=== PATIENT | male | born 1945 | race Caucasian/White ===

== ENCOUNTER 2016-03-22 13:23 | Observation (INO) | payer OTHER ==
[2016-03-22] MEDS ORDERED: MECLIZINE HCL 12.5 MG TAB PO ONE (17:26)
[2016-03-22] MEDS ORDERED: ONDANSETRON INJ 4 MG/2 ML VIAL IV ONE (17:26)
--- NOTE | 2016-03-22 17:49 | ED.PDOC ---
History of Present Illness - General Chief Complaint: GI Problem Stated Complaint: vomiting,elevated blood sugar Time Seen by Provider: 03/22/16 15:13 Source: patient, RN notes reviewed, Vital Signs reviewed, family Exam Limitations: no limitations - History of Present Illness Initial Comments: This 71 y/o male has been having dizziness with nausea/vomiting x 24 hours. Family brings him in stating that he is very unsteady on his feet. They have noticed his eyes moving back and forth when he turns his head. Patient states that anytimme he moves his head, he gets dizzy--the room spins. He denies any illness over the past couple of weeks. He saw his PCP last week, and his blood sugar was over 400. He is prescribed metformin, but he is not taking it as directed. Timing/Duration: 24 hours Severity: severe Improving Factors: nothing Worsening Factors: movement, other - movement of head Associated Symptoms: loss of appetite, nausea/vomiting, weakness Allergies/Adverse Reactions: Allergies NO KNOWN ALLERGY Allergy (Verified 03/22/16 13:49) Home Medications: Ambulatory Orders Metformin HCl 1,000 mg PO BID 03/22/16 Review of Systems - Review of Systems Constitutional: States: weakness EENTM: Denies: ear pain, ear discharge, nose pain, nose congestion, throat pain Respiratory: States: no symptoms reported Cardiology: States: no symptoms reported Gastrointestinal/Abdominal: States: nausea, vomiting Genitourinary: States: no symptoms reported Musculoskeletal: States: no symptoms reported Skin: States: no symptoms reported Neurological: States: weakness Endocrine: States: increased urine Hematologic/Lymphatic: States: no symptoms reported All other Systems: Reviewed and Negative Past Medical History (General) - Patient Medical History Hx of COPD: Yes Hx Cardiac Disorders: Yes Hx Diabetes: Yes Surgical History: coronary bypass surgery - Vaccination History Hx Influenza Vaccination: No Hx Pneumococcal Vaccination: Yes - Social History Hx Tobacco Use: Yes - uses vapor cigs Family Medical History - Family History Father Family History: Unknown Living Status: Unknown Physical Exam - Physical Exam General Appearance: Anxious, Comfortable, Obese Eye Exam: bilateral other - nystagmus when moving head Ears, Nose, Throat: hearing grossly normal, normal ENT inspection, normal pharynx Neck: non-tender, normal inspection Respiratory: lungs clear, normal breath sounds, no respiratory distress, no accessory muscle use Cardiovascular/Chest: regular rate, rhythm, no gallop, no murmur, other - trace edema Gastrointestinal/Abdominal: normal bowel sounds, soft, no organomegaly, tenderness - suprapubic Extremity: non-tender, normal inspection, pedal edema - trace Neurologic: pl sql developer II-XII nml as tested, alert, normal mood/affect, oriented x 3 Progress - Results/Orders Results/Orders: 03/22/16 03/22/16 13:49 15:07 Temperature 95.9 F L Pulse Rate [ 79 82 Right Brachial] Respiratory 20 20 Rate Blood Pressure 156/91 127/76 [Right Arm] O2 Sat by Pulse 93 L 95 Oximetry Laboratory Results WBC 12.0 K/mm3 (4.8-10.8) H 03/22/16 14:00 RBC 5.60 M/mm3 (4.70-6.10) 03/22/16 14:00 Hgb 16.4 gm/dL (14.0-18.0) 03/22/16 14:00 Hct 49.8 % (42.0-52.0) 03/22/16 14:00 MCV 88.9 fl (80.0-94.0) 03/22/16 14:00 MCH 29.3 pg (27.0-31.0) 03/22/16 14:00 MCHC 32.9 g/dL (33.0-37.0) L 03/22/16 14:00 RDW 13.5 % (11.5-14.5) 03/22/16 14:00 Plt Count 187 K/mm3 (130-400) 03/22/16 14:00 MPV 9.7 fl (7.40-10.4) 03/22/16 14:00 Absolute Neuts (auto) 9.60 K/uL (1.8-6.8) H 03/22/16 14:00 Absolute Lymphs (auto) 1.90 K/uL (1.0-3.4) 03/22/16 14:00 Absolute Monos (auto) 0.40 K/uL (0.2-0.8) 03/22/16 14:00 Absolute Eos (auto) 0.00 K/uL (0.0-0.4) 03/22/16 14:00 Absolute Basos (auto) 0.10 K/uL (0.0-0.1) 03/22/16 14:00 Neutrophils % 80.1 % (42.0-78.0) H 03/22/16 14:00 Lymphocytes % 15.7 % (20.0-50.0) L 03/22/16 14:00 Monocytes % 3.5 % (2.0-9.0) 03/22/16 14:00 Eosinophils % 0.3 % (1.0-5.0) L 03/22/16 14:00 Basophils % 0.4 % (0.0-2.0) 03/22/16 14:00 Sodium 135 mmol/L (135-145) 03/22/16 14:00 Potassium 4.1 mmol/L (3.6-5.0) 03/22/16 14:00 Chloride 101 mmol/L (101-111) 03/22/16 14:00 Carbon Dioxide 23 mmol/L (21-31) 03/22/16 14:00 Anion Gap 15.1 (12-18) 03/22/16 14:00 BUN 12 mg/dL (7-18) 03/22/16 14:00 Creatinine 0.87 mg/dL (0.6-1.3) 03/22/16 14:00 BUN/Creatinine Ratio 13.8 (10-20) 03/22/16 14:00 POC Glucose 334 mg/dL (70-105) H 03/22/16 13:50 Random Glucose 390 mg/dL (70-105) H 03/22/16 14:00 Serum Osmolality 286.1 mOsm/L (275-295) 03/22/16 14:00 Calcium 9.0 mg/dL (8.4-10.2) 03/22/16 14:00 Total Bilirubin 0.9 mg/dL (0.2-1.0) 03/22/16 14:00 AST 26 IU/L (10-42) 03/22/16 14:00 ALT 26 IU/L (10-60) 03/22/16 14:00 Alkaline Phosphatase 106 IU/L (42-121) 03/22/16 14:00 Serum Total Protein 7.4 gm/dL (6.4-8.2) 03/22/16 14:00 Albumin 3.8 g/dl (3.2-5.5) 03/22/16 14:00 Globulin 3.6 gm/dL (2.3-3.5) H 03/22/16 14:00 Albumin/Globulin Ratio 1.1 (1.1-1.9) 03/22/16 14:00 Urine Color Yellow (Yellow) 03/22/16 16:58 Urine Appearance Clear (Clear) 03/22/16 16:58 Urine pH 7.0 (4.5-7.8) 03/22/16 16:58 Ur Specific [place] 1.015 (1.005-1.030) 03/22/16 16:58 Urine Protein Negative mg/dL 03/22/16 16:58 Urine Glucose (UA) 500 mg/dL (Negative) H 03/22/16 16:58 Urine Ketones 40 mg/dL (NEGATIVE) H 03/22/16 16:58 Urine Blood Trace-intact (Negative) H 03/22/16 16:58 Urine Nitrite Negative 03/22/16 16:58 Urine Bilirubin Negative (NEGATIVE) 03/22/16 16:58 Urine Urobilinogen 0.2 mg/dL (0.2-1.0) 03/22/16 16:58 Ur Leukocyte Esterase Negative (Negative) 03/22/16 16:58 Urine RBC 1-3 /hpf 03/22/16 16:58 Urine WBC 1-3 /hpf 03/22/16 16:58 Ur Epithelial Cells 5-10 /hpf 03/22/16 16:58 Urine Bacteria Rare 03/22/16 16:58 Departure - Departure Clinical Impression: At high risk for falls Benign paroxysmal vertigo Qualifiers: Laterality: unspecified laterality Qualifier Code: (H81.10) Benign paroxysmal vertigo, unspecified ear Diabetes mellitus Qualifiers: Diabetes mellitus type: type 2 Diabetes mellitus complication status: with unspecified complications Qualifier Code: (E11.8) Type 2 diabetes mellitus with unspecified complications Time of Disposition: 18:26 Disposition: Admit Patient Condition: Fair Diet: diabetic diet Home Medications: Ambulatory Orders Metformin HCl 1,000 mg PO BID 03/22/16 Decision To Admit - Decistion To Admit Decision to Admit Reason: Admit from ER Decision to Admit Date: 03/22/16 Decision to Admit Time: 18:20
[2016-03-22] MEDS ORDERED: SODIUM CHLORIDE 0.9% (FLUSH) 10 ML SYG IV PRN (19:07)
[2016-03-22] MEDS ORDERED: GLUCAGON INJ 1 MG VIAL SUBCU PRN (19:15)
[2016-03-22] MEDS ORDERED: DEXTROSE 50% 25 GM/50 ML SYG IV PRN (19:15)
[2016-03-22] MEDS ORDERED: IV SET AND CAP CHANGE INJ INJ SCH (19:30)
[2016-03-22] MEDS ORDERED: MAGNESIUM HYDROXIDE 30 ML UD PO PRN (19:32)
[2016-03-22] MEDS ORDERED: ACETAMINOPHEN 325 MG TAB PO PRN (19:32)
[2016-03-22] MEDS ORDERED: metFORMIN HCL 500 MG TAB ONE (20:20)
[2016-03-22] MEDS ORDERED: ONDANSETRON INJ 4 MG/2 ML VIAL IV PRN (20:56)
[2016-03-22] MEDS ORDERED: PROMETHAZINE HCL INJ 12.5 MG in SODIUM CHLORIDE 0.9% 50ML 50 ML IVPB PRN (20:56)
[2016-03-22] MEDS ORDERED: NON-FORMULARY MEDICATION 1 EA MIS (Metformin Hcl [Metformin Hcl] 1,000 MG) PO SCH (21:00)
[2016-03-22] MEDS ORDERED: SODIUM CHLORIDE 0.9% 100ML 100 ML IVPB ONE (21:02)
[2016-03-22] MEDS ORDERED: PROMETHAZINE HCL INJ 25 MG/ML VIAL ONE (21:02)
[2016-03-22] MEDS: SODIUM CHLORIDE 0.9% 1000ML 1,000 ML IVS PRN (21:08)
[2016-03-22] MEDS: MECLIZINE HCL 12.5 MG TAB PO SCH (21:23)
[2016-03-22] MEDS ORDERED: INSULIN LISPRO 100 UNITS/ML PEN SUBCU ONE (22:00)
[2016-03-23] MEDS ORDERED: OMEPRAZOLE CAP 20 MG CAP PO SCH (06:30)
[2016-03-23] MEDS: SODIUM CHLORIDE 0.9% 1000ML 1,000 ML IVS PRN (07:54)
[2016-03-23] MEDS: INSULIN LISPRO 100 UNITS/ML PEN SUBCU SCH ×2 (08:36→12:33)
[2016-03-23] MEDS: MECLIZINE HCL 12.5 MG TAB PO SCH (08:36)
[2016-03-23 10:37] VITALS: BP 119/64; TEMP 98.2; O2SAT 94
--- NOTE | 2016-03-23 15:24 | SSS ---
DATE OF ADMISSION: 03/22/16 DATE OF DISCHARGE: 03/23/16 DISCHARGE DIAGNOSIS: 1. Acute vertigo with positional aggravation, suggesting acute vestibular neuronitis. No evidence of an ischemic event contributing, but no doubt aggravated by diabetes poorly controlled. 2. Diabetes mellitus, type 2, poorly controlled with poor compliance with the patient not actively taking his oral medicines as prescribed. 3. Leukocytosis, showing improvement as the patient's condition steadily improved. 4. History of coronary artery disease with coronary artery bypass grafting on two vessels in the year 1999. 5. Chronic lumbar pain with history of lumbar spine fusion. HISTORY OF PRESENT ILLNESS: This 71-year-old, white male was admitted to the hospital via the Emergency Room because of severe protracted positional vertigo. He was unable to walk and had to crawl across his room at home where he lives alone. He had associated as well as repeat emesis as a result. No previous history of similar symptoms. He has diabetes mellitus on metformin 1000 mg twice a day per record, but he admits he has not even been taking the medicine recently and has a sugar of almost 400 as a result. He is not on any particular diabetic diet and will require specific instructions and close followup and management. He is willing to be a little more vigorous and consistent in his medication treatment program for his diabetes, etc., which is a necessity especially with his current symptoms as bad as they are. No headache, no focal weakness, but just a severe spinning vertigo even with his eyes shut. Any type of movement of his head was overwhelmingly aggravating his symptoms of vertigo and dizziness with associated nausea. He was placed in the hospital overnight for stabilization, intravenous fluids, reevaluation the next morning in an effort to try to get him to the point where he would be able to safely return home. PAST MEDICAL HISTORY: 1. History of DVT exams and treatment course two to three months ago by Dr. Vicente in [place]. 2. History of diabetes mellitus, poorly controlled. PAST SURGICAL HISTORY: 1. Coronary artery bypass grafting, two vessels, in 1999. 2. Lumbar spine fusion with chronic pain. 3. Right total knee replacement. CURRENT MEDICATIONS: 1. Metformin 1000 mg b.i.d., which he admits to not taking on a regular basis at all. ALLERGIES: NONE KNOWN. FAMILY HISTORY: Generally negative. SOCIAL HISTORY: The patient has worked and is retired from [employer]. He stopped smoking three years ago, but has gotten pretty heavily into the vapor route of nicotine administration and encouraged to stop completely. REVIEW OF SYSTEMS: GENERAL: Weight unchanged. No fever or chills. HEENT: Unremarkable. LUNGS: Occasional shortness of breath upon exertion, occasional cough. CARDIOVASCULAR: No significant palpitations or recent chest pain. ABDOMEN: Nausea, vomiting with his current dizziness. EXTREMITIES: Trace edema at times. NEUROLOGIC: Significant vertigo at this time aggravated by certain movements of the head, showing some improvement before discharge. PHYSICAL EXAMINATION: VITAL SIGNS: Afebrile. Pulse 70. Blood pressure 117/75. Saturation 93% on room air. Weight 98.9 kg. GENERAL: The patient is awake and alert. He was acutely ill on admission, but was feeling much improved at the time of discharge on the morning of discharge. He was able to carry on a good conversation. He was fully oriented and communicative with no focal weaknesses. HEENT: Unremarkable. He did have a slight lateral nystagmus on admission, but was gone on the morning of discharge. NECK: Supple. CHEST: Lungs generally clear to auscultation with decreased breath sounds noted bilaterally. CARDIOVASCULAR: Regular without any significant gallop, fairly slow rate. ABDOMEN: Soft with good bowel tones. No organomegaly, masses, or tenderness noted. EXTREMITIES: Fairly well formed with good range of motion, trace edema. NEUROLOGIC: No focal neurologic deficits noted. Acute vertigo with positional changes of the head has significantly improved with the patient demonstrating this by turning his head from side to side with no aggravation of the symptoms on the morning of discharge, which he could not do at the time of admission the night before. LABORATORY: White count 12,000, down to 10,400 with 62% neutrophils. Hemoglobin 15.2. Chemistries show potassium 3.8, BUN 14, creatinine 0.94, glucose has dropped from 390 down to fasting of 192. Hemoglobin A1c elevated at 10.9. Albumin 3.3, TSH 0.59. Urinalysis shows trace hematuria, ketones, and glycosuria present. No cultures obtained. HOSPITAL COURSE: The patient was feeling much improved after a night of rest with some fluid hydration and some sliding scale insulin intervention. Meclizine was started on a t.i.d. basis which will be continued on an as needed basis when he goes home. He was much improved and ready for outpatient therapy and encouraged to have close followup. PLAN: Discharge home to see Dr. Vicente this next week. Adhere closely to the diabetic diet. Monitor glucoses twice daily, write results down for Dr. Vicente ' review. Adjust diabetic medications to control the glucose levels with Dr. Vicente' clinic input. Walk daily. Stop all vapor inhalation. Use a pill organizer to help him in medication usage to prevent missed dosages. See an ENT clinic with Dr. Vicente' direction if the vertigo continues. Consider head MRI if not improving. Return if not improving. See home medications. Add baby aspirin daily. Try meclizine 25 mg t.i.d. p.r.n. dizziness and Zofran 4 mg q.6h. p.r.n. nausea, #15 given. Close followup necessary. #[id number] [facility]
[2016-03-23] MEDS ORDERED: metFORMIN HCL 500 MG TAB PO SCH (17:00)
== END 2016-03-23 13:15 | disposition home or self-care (01) ==
LOC: ER 13:23 → MS 19:44
PROVIDERS: ADMIT Emergency Medicine; ATTEND Emergency Medicine
DX: H81.10 Benign paroxysmal vertigo, unspecified ear (principal); E11.9 Type 2 diabetes mellitus without complications; D72.829 Elevated white blood cell count, unspecified; R11.2 Nausea with vomiting, unspecified; I25.10 Atherosclerotic heart disease of native coronary artery without angina pectoris; G89.29 Other chronic pain; M54.5 Low back pain; F17.290 Nicotine dependence, other tobacco product, uncomplicated; Z91.14 Patient's other noncompliance with medication regimen; Z79.84 Long term (current) use of oral hypoglycemic drugs; Z95.1 Presence of aortocoronary bypass graft; Z98.1 Arthrodesis status; Z60.2 Problems related to living alone; Z86.718 Personal history of other venous thrombosis and embolism; Z96.651 Presence of right artificial knee joint
CPT/HCPCS: 36415 ×2; 36416 ×6; 80053 ×2; 81001; 82948 ×6; 83036; 84443; 85025 ×2; 94760 ×2; 96365; 96372 ×2; 96375; 96376; 99284; G0378; J1815; J2405 ×2; J2550; J7030 ×2; J7050

== ENCOUNTER 2017-01-07 17:29 | Emergency (ER) | payer OTHER ==
--- NOTE | 2017-01-07 17:53 | ED.PDOC ---
History of Present Illness - General Chief Complaint: Trauma Stated Complaint: s/p fall Time Seen by Provider: 01/07/17 17:45 Source: patient Exam Limitations: no limitations - History of Present Illness Initial Comments: Elie Mast 71 y/o male stated he tripped on a birdbath at home fell on his right side of his body happened at home last night.Denies head neck injury but daughter stated no acting right today.Noticed that unable to get up form commode today.Has pain right knee,hip right ribs. Occurred: yesterday Severity: moderate Injuries/Pain Location: no injury - no signs of external injury , other - see hpi Loss of Consciousness: no loss of consciousness Improving Factors: nothing Worsening Factors: movement Associated Symptoms (Fall): other - see hpi Allergies/Adverse Reactions: Allergies NO KNOWN ALLERGY Allergy (Verified 03/22/16 13:49) Home Medications: Ambulatory Orders Metformin HCl 1,000 mg PO BID 03/22/16 Aspirin [Aspirin Adult Low Dose] 81 mg PO QAM #100 tab 03/23/16 Meclizine HCl 25 mg PO TID PRN #30 tab 03/23/16 Ondansetron Tab [Zofran Tab] 4 mg PO Q6H PRN #15 tab 03/23/16 Review of Systems - Review of Systems Constitutional: States: no symptoms reported EENTM: States: no symptoms reported Respiratory: States: see HPI Cardiology: States: no symptoms reported Gastrointestinal/Abdominal: States: no symptoms reported Genitourinary: States: no symptoms reported Musculoskeletal: States: see HPI Skin: States: no symptoms reported Neurological: States: see HPI Past Medical History (General) - Patient Medical History Hx Seizures: No Hx Stroke: No Hx Asthma: No Hx of COPD: No Hx Cardiac Disorders: Yes Hx Congestive Heart Failure: No Hx Pacemaker: No Hx Hypertension: Yes Hx Diabetes: Yes Hx MRSA: No Surgical History: coronary bypass surgery, other - valve replacement,lumbar spine,knee - Vaccination History Hx Influenza Vaccination: No Hx Pneumococcal Vaccination: No - Social History Hx Tobacco Use: Yes - Vapes currently Hx Alcohol Use: No Hx Substance Use: No Hx Physical Abuse: No Hx Emotional Abuse: No - Activities of Daily Living Patient Lives Alone: Yes Grooming Ability: Independent Eating (Feeding) Ability: Independent Toileting Ability: Independent Physical Exam - Physical Exam General Appearance: Alert, Comfortable, No apparent distress Head Injury: no evidence of injury Eye Exam: bilateral normal ENT Exam: hearing grossly normal, no evidence of ENT injury, no dental injury Peripheral Pulses: radial,right: 2+, radial,left: 2+ Cardiovascular/Respiratory: regular rate, rhythm, no M/R/G, normal peripheral pulses, normal breath sounds, no respiratory distress, other - lower rib cage tenderness right Gastrointestinal/Abdominal: non tender, soft Back Exam: no vertebral tenderness Extremity Exam: pelvis stable, bony-point tenderness - pelvis/right hip, pain with movement - right knee Neurologic: alert, oriented x 3 Progress - Progress Progress: 01/07/17 18:13 Vital Signs - 8 hr 01/07/17 17:43 Temperature 97.1 F L Pulse Rate [ 84 Left Brachial] Respiratory 20 Rate Blood Pressure 130/90 [Left Arm] O2 Sat by Pulse 94 L Oximetry - Results/Orders Results/Orders: Laboratory Tests 01/07/17 18:14 POC Glucose 187 H - EKG/XRAY/CT XRAY: pelvis - degenarative changes,no fracture hip/pelvis CT Ordered: Yes - head no acute intracranial abnormality Departure - Departure Clinical Impression: Contusion of chest wall with intact skin, Knee pain, right anterior Fall Qualifiers: Encounter type: initial encounter Qualified Code(s): W19.XXXA - Unspecified fall, initial encounter Closed rib fracture Qualifiers: Encounter type: initial encounter Rib fracture type: single rib Laterality: right Qualified Code(s): S22.31XA - Fracture of one rib, right side, initial encounter for closed fracture Pain in joint involving pelvic region and thigh Qualifiers: Laterality: right Qualified Code(s): M25.551 - Pain in right hip Time of Disposition: 19:24 Disposition: Discharge to Home or Self Care Condition: Fair Departure Forms: ED Discharge - Pt. Copy, Patient Portal Self Enrollment Instructions: Rib Fracture, DI for Rib Fracture Referrals: DENNY CRUZ [Primary Care Provider] - 1-2 Weeks Home Medications: Ambulatory Orders Metformin HCl 1,000 mg PO BID 03/22/16 Aspirin [Aspirin Adult Low Dose] 81 mg PO QAM #100 tab 03/23/16 Meclizine HCl 25 mg PO TID PRN #30 tab 03/23/16 Ondansetron Tab [Zofran Tab] 4 mg PO Q6H PRN #15 tab 03/23/16 Additional Instructions: May take Tylenol 500 mg one tablet 3 x a day as needed for pain;Follow up with primary md in one week call for appointment as needed
--- NOTE | 2017-01-07 18:39 | CT ---
PROCEDURE: Head CLINICAL HISTORY: 71 years Male fall COMPARISON: None. TECHNIQUE: Contiguous axial CT images obtained through the brain without IV contrast. This exam was performed according to our department optimization program which includes automated exposure control, adjustment of the mA and/or kv according to patient size and/or use of iterative reconstruction technique. FINDINGS: The ventricles and sulci are prominent consistent with atrophic changes. Microvascular ischemic changes. No mass lesions. No acute hemorrhage. Atherosclerotic calcifications. Small mucous retention cyst in the right maxillary sinus and within a right posterior ethmoid air cell. No depressed calvarial fractures. IMPRESSION: No acute intracranial abnormality is identified. Electronically signed by: Erik Gillespie MD 01/07/2017 6:38 PM CDT
--- NOTE | 2017-01-07 18:55 | RAD ---
PROCEDURE: Pelvis,2 or More Views Clinical History: fall Indication: Same as above Comparison: None . Technique: 2.0 frontal views of the pelvis Findings: There is no evidence of acute fractures or dislocations involving the bones of the pelvis including the bilateral hip joints, the visualized proximal femora and the sacrum. There is evidence of prior surgery in the visualized lower lumbar spine Impression: Negative for acute bony trauma involving the bony pelvis Place of interpretation: [id number]. Electronically signed by: Adam Cooper MD 01/07/2017 6:54 PM CDT Workstation: [email or web address]
--- NOTE | 2017-01-07 18:59 | RAD ---
EXAM DESCRIPTION: Ribs,Right 3 Views CLINICAL HISTORY: fall COMPARISON: None. FINDINGS: Frontal view of the chest and views of the right ribs were submitted. Cardiac silhouette is within normal limits. There is no focal parenchymal infiltrate. No pleural effusion. Multiple median sternotomy wires several of which appear fractured. No pneumothorax. Question nondisplaced fracture of the anterolateral right ninth rib. Multilevel degenerative change in the spine.. IMPRESSION: Question nondisplaced fracture of the anterolateral right ninth rib Degenerative changes in the spine Electronically signed by: Vilma Gillespie 01/07/2017 6:58 PM CDT
--- NOTE | 2017-01-07 19:06 | RAD ---
PROCEDURE: Knee,Left 2 or More Views Clinical History: fall Indication: Same as above. Comparison: None . Technique: 2.0 Views of the left knee were done. Findings: There is no evidence of acute fractures or dislocations involving the bones of the left knee joint. There is no evidence of any significant suprapatellar joint effusion. Degenerative reduction in the joint space in the patellofemoral and the medial femorotibial joint compartments is noted. Marginal osteophyte formation in a tricompartmental distribution is noted. There is chondrocalcinosis of the medial meniscus The bone mineralization is normal for patient's age and sex. The soft tissues are radiographically unremarkable. There is no visualization of any radiopaque foreign bodies in the evaluated soft tissues. Impression: Degenerative changes in the left knee, without any acute bony trauma Place of interpretation: [id number]. Electronically signed by: Adam Cooper MD 01/07/2017 7:05 PM CDT Workstation: [email or web address]
--- NOTE | 2017-01-07 19:14 | RAD ---
PROCEDURE: XR CHEST 1 VIEW HISTORY: fall COMPARISON: X-ray of the right-sided ribs done on the same day TECHNIQUE: Single projection of the chest was done. FINDINGS: Note is made of median sternotomy . There are no discrete airspace infiltrates, pneumothoraces or pleural effusions. The pulmonary vascularity is normal. The cardiomediastinal silhouette is suggestive of mild cardiomegaly. IMPRESSION: There is no acute pleural-parenchymal process seen in the imaged lung chandra. Mild cardiomegaly Electronically signed by: Adam Cooper MD 01/07/2017 7:13 PM CDT Workstation: [id number]
[2017-01-07 19:36] VITALS: BP 158/88; TEMP 97.9; O2SAT 92
== END 2017-01-07 19:36 | disposition home or self-care (01) ==
LOC: ER 17:29
DX: S22.31XA Fracture of one rib, right side, initial encounter for closed fracture (principal); S20.219A Contusion of unspecified front wall of thorax, initial encounter; Z79.899 Other long term (current) drug therapy; Z79.82 Long term (current) use of aspirin; Z95.2 Presence of prosthetic heart valve; F17.210 Nicotine dependence, cigarettes, uncomplicated; Z95.1 Presence of aortocoronary bypass graft; W01.0XXA Fall on same level from slipping, tripping and stumbling without subsequent striking against object, initial encounter; Y92.009 Unspecified place in unspecified non-institutional (private) residence as the place of occurrence of the external cause

== ENCOUNTER 2017-05-30 15:21 | Emergency (ER) | payer OTHER ==
[2017-05-30] MEDS ORDERED: ENOXAPARIN SODIUM 100 MG/ML SYG SUBCU ONE (18:20)
--- NOTE | 2017-05-30 18:36 | ED.PDOC ---
History of Present Illness - General Chief Complaint: General Stated Complaint: Circulatory compromise in RLE Time Seen by Provider: 05/30/17 18:11 Source: patient, family Exam Limitations: no limitations - History of Present Illness Initial Comments: Patient presents with increasing right foot pain for 4-5 days. It started gradually and got bad enough to where he could not stand today and had to use a wheelchair. The pain is constant and aching with no radiation, worse in the toes, worse with movement of the toes and better with rest. No previous episodes on the right side but has a history of "blood clots" in the LLE. He is s/p CABG, TAA with repair, and has NIDDM. No chest pain nor palpitations. No other complaints. Timing/Duration: other - 4 days Severity: moderate Improving Factors: rest Worsening Factors: movement Associated Symptoms: denies symptoms Allergies/Adverse Reactions: Allergies NO KNOWN ALLERGY Allergy (Verified 03/22/16 13:49) Home Medications: Ambulatory Orders Metformin HCl 1,000 mg PO BID 03/22/16 Aspirin [Aspirin Adult Low Dose] 81 mg PO QAM #100 tab 03/23/16 Meclizine HCl 25 mg PO TID PRN #30 tab 03/23/16 Ondansetron Tab [Zofran Tab] 4 mg PO Q6H PRN #15 tab 03/23/16 Review of Systems - Review of Systems Constitutional: States: no symptoms reported EENTM: States: no symptoms reported Respiratory: States: no symptoms reported Cardiology: States: no symptoms reported Gastrointestinal/Abdominal: States: no symptoms reported Genitourinary: States: no symptoms reported Musculoskeletal: States: see HPI Skin: States: change in color - right toes have become purple Past Medical History (General) - Patient Medical History Hx Seizures: No Hx Stroke: No Hx Asthma: No Hx of COPD: No Hx Cardiac Disorders: Yes Hx Congestive Heart Failure: No Hx Pacemaker: No Hx Hypertension: Yes Hx Diabetes: Yes Hx MRSA: No - Vaccination History Hx Influenza Vaccination: No Hx Pneumococcal Vaccination: No - Social History Hx Tobacco Use: Yes - Vapes currently Hx Alcohol Use: No Hx Substance Use: No Hx Physical Abuse: No Hx Emotional Abuse: No Family Medical History - Family History Father Family History: Unknown Living Status: Unknown Mother Living Status: Cause of : old age Hx Family Asthma: No Hx Family Congestive Heart Failure: No Hx Family Hypertension: No Hx Family Stroke: No Hx Cardiac Disease: No Hx Family Diabetes: Yes Hx Family Cancer: No Physical Exam - Physical Exam General Appearance: Alert Eye Exam: bilateral normal Ears, Nose, Throat: normal ENT inspection Neck: non-tender, full range of motion, supple Respiratory: chest non-tender, lungs clear, normal breath sounds Cardiovascular/Chest: regular rate, rhythm Peripheral Pulses: radial,right: 2+, radial,left: 2+, femoral,right: 2+, femoral ,left: 2+, popliteal,right: 2+, popliteal,left: 2+, dorsalis pedis,right: 1+, dorsalis pedis,left: 1+, posterior tibialis,right: 1+, posterior tibialis,left: 1+ Gastrointestinal/Abdominal: normal bowel sounds, non tender, soft Back Exam: no CVA tenderness Extremity: normal range of motion, other - TTP over right toes, especially at proximal phalanges, there is discoloration that is purplish, he has full sensation on all toes and entire right foot as well as full AROM and PROM but there is pain with flexion/extesion of the toes 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, alert, normal mood/affect, oriented x 3 Skin Exam: other - see extremity exam Lymphatic: no adenopathy Progress - Progress Progress: 05/30/17 18:39 Laboratory Tests 05/30/17 05/30/17 05/30/17 16:30 16:30 16:30 WBC 11.1 H RBC 4.88 Hgb 14.3 Hct 43.3 MCV 88.8 MCH 29.4 MCHC 33.1 RDW 14.5 Plt Count 188 MPV 8.4 Absolute Neuts (auto) 8.80 H Absolute Lymphs (auto) 1.70 Absolute Monos (auto) 0.60 Absolute Eos (auto) 0.00 Absolute Basos (auto) 0.10 Neutrophils % 79.0 H Lymphocytes % 15.1 L Monocytes % 5.0 Eosinophils % 0.1 L Basophils % 0.8 PT 12.6 H INR 1.120 PTT (SP) 27.9 D-Dimer, Quantitative 303 H* Sodium 135 Potassium 3.8 Chloride 102 Carbon Dioxide 24 Anion Gap 12.8 BUN 19 H Creatinine 1.07 BUN/Creatinine Ratio 17.8 POC Glucose Random Glucose 219 H Serum Osmolality 279.1 Calcium 9.2 Total Bilirubin 1.1 H AST 27 ALT 16 Alkaline Phosphatase 90 Serum Total Protein 6.9 Albumin 3.4 Globulin 3.5 Albumin/Globulin Ratio 1.0 L 05/30/17 16:30 WBC RBC Hgb Hct MCV MCH MCHC RDW Plt Count MPV Absolute Neuts (auto) Absolute Lymphs (auto) Absolute Monos (auto) Absolute Eos (auto) Absolute Basos (auto) Neutrophils % Lymphocytes % Monocytes % Eosinophils % Basophils % PT INR PTT (SP) D-Dimer, Quantitative Sodium Potassium Chloride Carbon Dioxide Anion Gap BUN Creatinine BUN/Creatinine Ratio POC Glucose 184 H Random Glucose Serum Osmolality Calcium Total Bilirubin AST ALT Alkaline Phosphatase Serum Total Protein Albumin Globulin Albumin/Globulin Ratio No ultrasound available today. Patient transferred to [facility] for radiology/ultrasound of possible PVD. D-dimer mildly elevated but no significant swelling of the RLE or right calve pain/venous cords. Departure - Departure Clinical Impression: Pain in right foot Disposition: Transfer to Hospital Condition: Good Departure Forms: ED Discharge - Pt. Copy, Patient Portal Self Enrollment Diet: other - as per hospitalist Activity: as per physical therapy Referrals: DENNY CRUZ [Primary Care Provider] - 1-2 Weeks Home Medications: Ambulatory Orders Metformin HCl 1,000 mg PO BID 03/22/16 Aspirin [Aspirin Adult Low Dose] 81 mg PO QAM #100 tab 03/23/16 Meclizine HCl 25 mg PO TID PRN #30 tab 03/23/16 Ondansetron Tab [Zofran Tab] 4 mg PO Q6H PRN #15 tab 03/23/16
[2017-05-30 18:44] VITALS: TEMP 97
[2017-05-30 19:00] VITALS: BP 129/61; O2SAT 95
== END 2017-05-30 18:50 | disposition short-term general hospital (02) ==
LOC: ER 15:21
DX: M79.671 Pain in right foot (principal); I10 Essential (primary) hypertension; E11.9 Type 2 diabetes mellitus without complications; F17.210 Nicotine dependence, cigarettes, uncomplicated; Z86.718 Personal history of other venous thrombosis and embolism; Z95.1 Presence of aortocoronary bypass graft; Z79.82 Long term (current) use of aspirin

== ENCOUNTER → 2018-02-18 | Outpatient (CLI) | payer OTHER | LOC: LAB.O 08:41 | PROVIDERS: ATTEND Family Medicine | DX: R41.3 Other amnesia (principal); I10 Essential (primary) hypertension; E11.9 Type 2 diabetes mellitus without complications ==

== ENCOUNTER → 2018-02-22 | Outpatient (CLI) | payer OTHER ==
--- NOTE | 2018-02-22 17:30 | CT ---
EXAM DESCRIPTION: Head: Computed Tomography. CLINICAL HISTORY: MEMORY LOSS COMPARISON: MRI brain 03/24/2016. No report available. TECHNIQUE: Non-helical axial scans through the skull and brain, at 2 x 20 mm intervals, non-contrast. Coronal and sagittal 2.0 mm reconstructions. Total Exam DLP: 859.97 mGy-cm. This exam was performed according to our departmental dose-optimization program which includes automated exposure control, adjustment of the mA and/or kV according to patient size and/or use of iterative reconstruction technique; to reduce radiation dose to as low as reasonably achievable (ALARA). FINDINGS: No hemorrhage, no mass-effect, and no midline shift. Bilateral periventricular low-density is symmetric and moderate in amount. No abnormal radiodense material in the brain parenchyma. Vascular calcifications anterior circulation; physiologic calcifications in the pineal gland and choroid plexus. No effacement or displacement of the ventricles, CSF spaces, or subdural spaces. No extra axial fluid collection or hemorrhage. No gross abnormalities of the bony calvarium. Included paranasal sinuses and mastoid air cells are well - aerated. IMPRESSION: 1. No hemorrhage, no mass effect, no midline shift. Bilateral periventricular low-density most likely related to cerebral microvascular disease and changes related to aging. No extra-axial hemorrhage or fluid collection. 2. MRI scan with and without gadolinium IV contrast, and with diffusion imaging, is more sensitive for detecting chronic or skilled nursing age-related or vascular processes in the elderly population. Electronically signed by: Nader Ch MD 02/22/2018 5:29 PM [employer]
== END ==
LOC: CT 13:17
PROVIDERS: ATTEND Family Medicine
DX: R41.3 Other amnesia (principal); R41.0 Disorientation, unspecified; I10 Essential (primary) hypertension; E11.9 Type 2 diabetes mellitus without complications

== ENCOUNTER → 2018-04-06 | Outpatient (CLI) | payer OTHER | LOC: LAB.O 13:58 | PROVIDERS: ATTEND Urology | DX: R31.0 Gross hematuria (principal) ==

== ENCOUNTER → 2018-05-06 | Outpatient (CLI) | payer OTHER | LOC: GRHH 15:24 | PROVIDERS: ATTEND Family Medicine | DX: E55.9 Vitamin D deficiency, unspecified (principal); E53.8 Deficiency of other specified B group vitamins; I10 Essential (primary) hypertension; E11.9 Type 2 diabetes mellitus without complications ==

== ENCOUNTER 2018-06-26 10:06 | Emergency (ER) | payer OTHER ==
[2018-06-26] MEDS: ONDANSETRON ODT 8 MG TAB SL ONE (10:50)
[2018-06-26] MEDS ORDERED: MAGNESIUM SULFATE PREMIX 4GM 50 ML IVPB ONE (11:29)
[2018-06-26] MEDS: MAGNESIUM SULFATE PREMIX 4GM 4 GM in PREMIX BAG 1 BAG IVPB ONE (11:34)
[2018-06-26] MEDS: SODIUM CHLORIDE 0.9% 1000ML 1,000 ML IVS ONE (12:17)
[2018-06-26] MEDS: MECLIZINE HCL 12.5 MG TAB PO ONE (12:18)
[2018-06-26 14:17] VITALS: TEMP 97.2
--- NOTE | 2018-06-26 14:40 | ED.PDOC ---
History of Present Illness - General Chief Complaint: GI Problem Stated Complaint: dizziness,N/V Time Seen by Provider: 06/26/18 10:08 Source: patient Exam Limitations: no limitations - History of Present Illness Initial Comments: the patient is a 73-year-old male presenting to the emergency room after the abrupt onset of dizziness this morning that certainly seems to fit the description of vertigo. He is no longer having vertigo. While he did have a he did throw up a couple of times. He is a little bit dizzy still. No altered mental status currently. He was having a little bit of confusion while he was throwing up according to his daughter. No fevers. He has been having some mild dizziness and unsteadiness on his feet over the last couple of days. No vision taste or smell changes. No focal neurological deficits. The patient does have some mild dementia issues. He is pleasant and cooperative. Timing/Duration: unsure Severity: moderate Improving Factors: nothing Worsening Factors: nothing Associated Symptoms: denies symptoms Allergies/Adverse Reactions: Allergies NO KNOWN ALLERGY Allergy (Verified 03/22/16 13:49) Home Medications: Ambulatory Orders Metformin HCl 850 mg PO BID 03/22/16 Aspirin [Aspirin Adult Low Dose] 81 mg PO DAILY 06/26/18 Atorvastatin Calcium [Lipitor] 40 mg PO QPM 06/26/18 Cholecalciferol [Vitamin D-3] 5,000 unit PO DAILY 06/26/18 Clopidogrel Bisulfate [Plavix] 75 mg PO QD 06/26/18 Isosorbide Mononitrate [Isosorbide Mononitrate ER] 30 mg PO DAILY 06/26/18 Magnesium Oxide 400 mg PO DAILY #30 cap 06/26/18 Meclizine HCl [Meclizine 25] 25 mg PO Q6HR PRN #10 tab 06/26/18 Metoprolol Succinate [Toprol Xl] 25 mg PO DAILY 06/26/18 Multiple Vitamins W/ Minerals [Macular Health Formula] 1 cap PO QPM 06/26/18 Ondansetron [Ondansetron Odt] 4 mg PO Q8HR PRN #5 tab 06/26/18 Pantoprazole Tablet [Protonix] 40 mg PO DAILY 06/26/18 Tamsulosin HCl [Flomax] 0.4 mg PO DAILY 06/26/18 Review of Systems - Review of Systems Constitutional: States: malaise EENTM: States: no symptoms reported Respiratory: States: no symptoms reported Cardiology: States: no symptoms reported Gastrointestinal/Abdominal: States: no symptoms reported Genitourinary: States: no symptoms reported Musculoskeletal: States: no symptoms reported Skin: States: no symptoms reported Neurological: States: see HPI Endocrine: States: no symptoms reported All other Systems: No Change from Baseline Past Medical History (General) - Patient Medical History Hx Seizures: No Hx Stroke: No Hx Asthma: No Hx of COPD: No Hx Cardiac Disorders: Yes Hx Congestive Heart Failure: No Hx Pacemaker: No Hx Hypertension: Yes Hx Diabetes: Yes Hx Gastroesophageal Reflux: Yes Hx Cancer: No Hx Hepatitis C: No Hx MRSA: No - Vaccination History Hx Tetanus, Diphtheria Vaccination: No Hx Influenza Vaccination: No Hx Pneumococcal Vaccination: No - Social History Hx Tobacco Use: Yes - Vapes currently Hx Chewing Tobacco Use: No Hx Alcohol Use: No Hx Substance Use: No Hx Substance Use Treatment: No Hx Depression: No Hx Physical Abuse: No Hx Emotional Abuse: No Hx Suspected Abuse: No Family Medical History - Family History Father Family History: Unknown Living Status: Unknown Mother Living Status: Cause of : old age Hx Family Asthma: No Hx Family Congestive Heart Failure: No Hx Family Hypertension: No Hx Family Stroke: No Hx Cardiac Disease: No Hx Family Diabetes: Yes Hx Family Cancer: No Physical Exam - Physical Exam General Appearance: Alert, Ill Appearing Eye Exam: bilateral normal - no obvious abnormal nystagmus.no obvious vertical skew deviation. Ears, Nose, Throat: hearing grossly normal, normal ENT inspection Neck: non-tender, full range of motion, supple Respiratory: lungs clear, normal breath sounds, no respiratory distress, no accessory muscle use Cardiovascular/Chest: normal peripheral pulses - borderline bradycardia, regular rate, rhythm, no edema Peripheral Pulses: radial,right: 2+, radial,left: 2+, dorsalis pedis,right: 2+, dorsalis pedis,left: 2+ Gastrointestinal/Abdominal: non tender, soft Rectal Exam: deferred Back Exam: no CVA tenderness, no vertebral tenderness Extremity: normal range of motion, non-tender, normal inspection, no pedal edema, normal capillary refill 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, alert, normal mood/affect, oriented x 3 Skin Exam: pallor Comments: Vital Signs - 24 hr 06/26/18 06/26/18 06/26/18 10:15 10:46 10:47 Temperature 96.6 F L Pulse Rate [ 62 58 L 67 Left Brachial] Respiratory 20 Rate Blood Pressure 143/84 140/76 140/79 [Left Arm] O2 Sat by Pulse 94 L 95 95 Oximetry 06/26/18 06/26/18 06/26/18 10:48 11:15 12:00 Temperature Pulse Rate [ 83 61 78 Left Brachial] Respiratory 20 24 Rate Blood Pressure 165/97 146/77 134/76 [Left Arm] O2 Sat by Pulse 95 93 L 90 L Oximetry 06/26/18 06/26/18 13:00 14:00 Temperature 97.2 F L Pulse Rate [ 60 59 L Left Brachial] Respiratory 20 18 Rate Blood Pressure 144/67 125/71 [Left Arm] O2 Sat by Pulse 91 L 92 L Oximetry Progress - Progress Progress: 06/26/18 14:41 the patient is a 73-year-old male presenting after what appears to be a significant episode of vertigo. Source of this is not entirely defined however the patient has had a head CT that shows no definitive new pathology. He is feeling better at this point. He did have some significant dehydration and has received a liter of fluids and has been treated for significant hypomagnesemia. He'll be written for magnesium oxide as an outpatient for the hypomagnesemia and needs to have this level rechecked in a few weeks. He does need to control his blood sugars as these may be dehydrating him slowly. He will be written for meclizine for as needed use for the dizziness and Zofran for as needed use for nausea and vomiting. ER warnings were given for any significant worsening. Follow up with primary care doctor later this coming week. - Results/Orders Results/Orders: Laboratory Tests 06/26/18 06/26/18 06/26/18 10:38 10:38 10:38 WBC 9.0 RBC 4.83 Hgb 14.7 Hct 44.8 MCV 92.8 MCH 30.4 MCHC 32.7 L RDW 14.0 Plt Count 149 MPV 10.2 Absolute Neuts (auto) 7.00 H Absolute Lymphs (auto) 1.40 Absolute Monos (auto) 0.40 Absolute Eos (auto) 0.20 Absolute Basos (auto) 0.10 Neutrophils % 77.4 Lymphocytes % 15.5 L Monocytes % 4.5 Eosinophils % 1.8 Basophils % 0.8 PT 10.0 INR 1.00 PTT (SP) 22.3 Sodium 138 Potassium 3.9 Chloride 105 Carbon Dioxide 21 Anion Gap 15.9 BUN 11 Creatinine 0.85 BUN/Creatinine Ratio 12.9 Random Glucose 261 H Serum Osmolality 284.1 Lactic Acid Calcium 8.8 Magnesium 1.4 L Total Bilirubin 0.7 AST 22 ALT 18 Alkaline Phosphatase 85 Creatine Kinase 65 CK-MB (CK-2) 1.9 CK-MB (CK-2) % Not Reportable Troponin I < 0.02 B-Natriuretic Peptide 76.8 Serum Total Protein 6.7 Albumin 3.6 Globulin 3.1 Albumin/Globulin Ratio 1.2 Amylase 22 L Lipase 28 Urine Color Urine Appearance Urine pH Ur Specific [place] Urine Protein Urine Glucose (UA) Urine Ketones Urine Blood Urine Nitrite Urine Bilirubin Urine Urobilinogen Ur Leukocyte Esterase Urine RBC Urine WBC Ur Epithelial Cells Urine Bacteria 06/26/18 06/26/18 11:19 14:23 WBC RBC Hgb Hct MCV MCH MCHC RDW Plt Count MPV Absolute Neuts (auto) Absolute Lymphs (auto) Absolute Monos (auto) Absolute Eos (auto) Absolute Basos (auto) Neutrophils % Lymphocytes % Monocytes % Eosinophils % Basophils % PT INR PTT (SP) Sodium Potassium Chloride Carbon Dioxide Anion Gap BUN Creatinine BUN/Creatinine Ratio Random Glucose Serum Osmolality Lactic Acid 3.3 H* Calcium Magnesium Total Bilirubin AST ALT Alkaline Phosphatase Creatine Kinase CK-MB (CK-2) CK-MB (CK-2) % Troponin I B-Natriuretic Peptide Serum Total Protein Albumin Globulin Albumin/Globulin Ratio Amylase Lipase Urine Color Yellow Urine Appearance Clear Urine pH 6.0 Ur Specific [place] 1.025 Urine Protein Trace Urine Glucose (UA) 500 H Urine Ketones Trace Urine Blood Negative Urine Nitrite Negative Urine Bilirubin Negative Urine Urobilinogen 1.0 Ur Leukocyte Esterase Negative Urine RBC 0 Urine WBC 0 Ur Epithelial Cells 0 Urine Bacteria 0 EKG shows mild sinus bradycardia at 59 bpm. Left axis deviation. Shallow T waves. Borderline low voltage. Inferior Q waves. Normal QT interval. Possibly mild left atrial dilation. Acute abdominal series shows no definitive pathology. - EKG/XRAY/CT CT Ordered: Yes CT Interpretation Call Back: Yes Departure - Departure Clinical Impression: Vertigo, Hypomagnesemia, Dehydration Disposition: Discharge to Home or Self Care Condition: Fair Departure Forms: ED Discharge - Pt. Copy, Patient Portal Self Enrollment Instructions: Vertigo (a Type of Dizziness) (DC), Dehydration, Adult (DC) Diet: diabetic diet Activity: increase activity as tolerated Referrals: DENNY CRUZ [Primary Care Provider] - 1-2 Weeks Prescriptions: Meclizine HCl [Meclizine 25] 25 mg PO Q6HR PRN #10 tab PRN Reason: Dizziness Ondansetron [Ondansetron Odt] 4 mg PO Q8HR PRN #5 tab PRN Reason: Nausea/Vomiting Magnesium Oxide 400 mg PO DAILY #30 cap Home Medications: Ambulatory Orders Metformin HCl 850 mg PO BID 03/22/16 Aspirin [Aspirin Adult Low Dose] 81 mg PO DAILY 06/26/18 Atorvastatin Calcium [Lipitor] 40 mg PO QPM 06/26/18 Cholecalciferol [Vitamin D-3] 5,000 unit PO DAILY 06/26/18 Clopidogrel Bisulfate [Plavix] 75 mg PO QD 06/26/18 Isosorbide Mononitrate [Isosorbide Mononitrate ER] 30 mg PO DAILY 06/26/18 Magnesium Oxide 400 mg PO DAILY #30 cap 06/26/18 Meclizine HCl [Meclizine 25] 25 mg PO Q6HR PRN #10 tab 06/26/18 Metoprolol Succinate [Toprol Xl] 25 mg PO DAILY 06/26/18 Multiple Vitamins W/ Minerals [Macular Health Formula] 1 cap PO QPM 06/26/18 Ondansetron [Ondansetron Odt] 4 mg PO Q8HR PRN #5 tab 06/26/18 Pantoprazole Tablet [Protonix] 40 mg PO DAILY 06/26/18 Tamsulosin HCl [Flomax] 0.4 mg PO DAILY 06/26/18 Additional Instructions: the patient is a 73-year-old male presenting after what appears to be a significant episode of vertigo. Source of this is not entirely defined however the patient has had a head CT that shows no definitive new pathology. He is feeling better at this point. He did have some significant dehydration and has received a liter of fluids and has been treated for significant hypomagnesemia. He'll be written for magnesium oxide as an outpatient for the hypomagnesemia and needs to have this level rechecked in a few weeks. He does need to control his blood sugars as these may be dehydrating him slowly. He will be written for meclizine for as needed use for the dizziness and Zofran for as needed use for nausea and vomiting. ER warnings were given for any significant worsening. Follow up with primary care doctor later this coming week.
[2018-06-26 14:55] VITALS: BP 135/72; O2SAT 95
== END 2018-06-26 14:54 | disposition home or self-care (01) ==
LOC: ER 10:06
DX: R42 Dizziness and giddiness (principal); E86.0 Dehydration; E83.42 Hypomagnesemia; R11.2 Nausea with vomiting, unspecified; R00.1 Bradycardia, unspecified; F17.290 Nicotine dependence, other tobacco product, uncomplicated; I51.9 Heart disease, unspecified; I10 Essential (primary) hypertension; E11.9 Type 2 diabetes mellitus without complications; K21.9 Gastro-esophageal reflux disease without esophagitis; Z79.899 Other long term (current) drug therapy; Z79.82 Long term (current) use of aspirin; Z79.84 Long term (current) use of oral hypoglycemic drugs
CPT/HCPCS: 70450; 74019; 80053; 81001; 82150; 82550; 82553; 83605; 83690; 83735; 83880; 84484; 85025; 85610; 85730; 93005; J3475; J7030

== ENCOUNTER 2019-08-19 14:54 | Emergency (ER) | payer OTHER ==
[2019-08-19] MEDS ORDERED: SODIUM CHLORIDE 0.9% 1000ML 1,000 ML IVS ONE (15:10)
[2019-08-19] MEDS ORDERED: INSULIN, REG.(HUMAN) 100 U/ML VIAL IV ONE (15:11)
[2019-08-19 15:17] VITALS: O2SAT 94
[2019-08-19] MEDS ORDERED: POTASSIUM CHLORIDE ELIXIR 20 MEQ/15 ML UD PO ONE (15:57)
--- NOTE | 2019-08-19 16:59 | ED.PDOC ---
History of Present Illness - General Chief Complaint: Diabetic Complaint Stated Complaint: elevated blood sugar Time Seen by Provider: 08/19/19 15:03 Source: patient Exam Limitations: no limitations - History of Present Illness Initial Comments: The patient is a 74-year-old male presented emergency room secondary to hypoglycemia. His blood sugars have been running high over the last week. He feels fine with it. The only thing that is changed about his medication is that he is actually gone up on his Trulicity and he is taking more of a diuretic for his edema. He does appear a little bit dehydrated. Edema however is at a minimum. No chest pain or shortness of breath. No nausea or vomiting. No altered mental status. He is pleasant and cooperative. Initial blood glucose here is over 400. Check electrolytes 511. No evidence of DKA. Timing/Duration: 1 week Severity: mild Improving Factors: nothing Worsening Factors: nothing Associated Symptoms: denies symptoms Allergies/Adverse Reactions: Allergies NO KNOWN ALLERGY Allergy (Verified 03/22/16 13:49) Home Medications: Ambulatory Orders Metformin HCl [Metformin Hydrochloride] 850 mg PO BID 03/22/16 Aspirin [Aspirin Adult Low Dose] 81 mg PO DAILY 06/26/18 Atorvastatin Calcium [Lipitor] 40 mg PO QPM 06/26/18 Cholecalciferol [Vitamin D-3] 5,000 unit PO DAILY 06/26/18 Clopidogrel Bisulfate [Plavix] 75 mg PO QD 06/26/18 Isosorbide Mononitrate [Isosorbide Mononitrate ER] 30 mg PO DAILY 06/26/18 Magnesium Oxide 400 mg PO DAILY #30 cap 06/26/18 Metoprolol Succinate [Toprol Xl] 25 mg PO DAILY 06/26/18 Multiple Vitamins W/ Minerals [Macular Health Formula] 1 cap PO QPM 06/26/18 Pantoprazole Tablet [Protonix] 40 mg PO DAILY 06/26/18 Tamsulosin HCl [Flomax] 0.4 mg PO DAILY 06/26/18 Dulaglutide [Trulicity] 1.5 mg SC 08/19/19 Review of Systems - Review of Systems Constitutional: States: no symptoms reported EENTM: States: no symptoms reported Respiratory: States: no symptoms reported Cardiology: States: no symptoms reported Gastrointestinal/Abdominal: States: no symptoms reported Genitourinary: States: no symptoms reported Musculoskeletal: States: no symptoms reported Skin: States: no symptoms reported Neurological: States: no symptoms reported Endocrine: States: no symptoms reported All other Systems: No Change from Baseline Past Medical History (General) - Patient Medical History Hx Seizures: No Hx Stroke: No Hx Dementia: No Hx Asthma: No Hx of COPD: No Hx Cardiac Disorders: Yes Hx Congestive Heart Failure: No Hx Pacemaker: No Hx Hypertension: Yes Hx Thyroid Disease: No Hx Diabetes: Yes Hx Gastroesophageal Reflux: Yes Hx Renal Disease: No Hx Cancer: No Hx of HIV: No Hx Hepatitis C: No Hx MRSA: No Surgical History: other - Vaccination History Hx Tetanus, Diphtheria Vaccination: No Hx Influenza Vaccination: Yes Hx Pneumococcal Vaccination: No - Social History Hx Tobacco Use: Yes - Vapes currently Hx Chewing Tobacco Use: No Hx Alcohol Use: No Hx Substance Use: No Hx Substance Use Treatment: No Hx Depression: No Hx Physical Abuse: No Hx Emotional Abuse: No Hx Suspected Abuse: No - Female History Patient is a Female of Child Bearing Age (10 -59 yrs old): No Family Medical History - Family History Father Family History: Unknown Living Status: Unknown Mother Living Status: Cause of : old age Hx Family Asthma: No Hx Family Congestive Heart Failure: No Hx Family Hypertension: No Hx Family Stroke: No Hx Cardiac Disease: No Hx Family Diabetes: Yes Hx Family Cancer: No Physical Exam - Physical Exam General Appearance: Alert, Comfortable, No apparent distress Eye Exam: bilateral normal Ears, Nose, Throat: hearing grossly normal Neck: non-tender, supple Respiratory: lungs clear, normal breath sounds, no respiratory distress, no accessory muscle use Cardiovascular/Chest: normal peripheral pulses, no edema, other - Regular rate Peripheral Pulses: radial,right: 2+, radial,left: 2+ Gastrointestinal/Abdominal: non tender, soft Rectal Exam: deferred Extremity: normal range of motion, no pedal edema, no calf tenderness, normal capillary refill 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 He is essentially asymptomatic. This is likely related to an increase in his diuresis. For now I am recommending that they use the diuretic every other day. He does have some very mild hypokalemia from it and received a dose of potassium today. He also received IV insulin for the hyperglycemia. Blood sugars are back down in the 200s. I am going to recommend that he increase his glimepiride to 2 mg twice daily for the next week and follow-up with his primary care doctor early next week for repeat evaluation. ER warnings are given for any significant worsening. nolan rios [phone] - Results/Orders Results/Orders: Laboratory Tests 08/19/19 08/19/19 08/19/19 15:03 15:17 15:17 WBC 10.3 RBC 5.24 Hgb 15.4 Hct 47.9 MCV 91.4 MCH 29.4 MCHC 32.1 L RDW 14.6 H Plt Count 161 MPV 10.5 H Absolute Neuts (auto) 7.20 H Absolute Lymphs (auto) 2.10 Absolute Monos (auto) 0.80 Absolute Eos (auto) 0.20 Absolute Basos (auto) 0.10 Neutrophils % 69.4 Lymphocytes % 20.4 Monocytes % 7.5 Eosinophils % 2.0 Basophils % 0.7 Sodium 135 Potassium 3.3 L Chloride 98 L Carbon Dioxide 24 Anion Gap 16.3 BUN 19 H Creatinine 1.11 BUN/Creatinine Ratio 17.1 POC Glucose > 400 H* Random Glucose 511 H* Serum Osmolality 295.6 H Calcium 9.1 Total Bilirubin 0.8 AST 26 ALT 29 Alkaline Phosphatase 103 Serum Total Protein 7.5 Albumin 3.8 Globulin 3.7 H Albumin/Globulin Ratio 1.0 L Urine Color Urine Appearance Urine pH Ur Specific [place] Urine Protein Urine Glucose (UA) Urine Ketones Urine Blood Urine Nitrite Urine Bilirubin Urine Urobilinogen Ur Leukocyte Esterase Urine RBC Urine WBC Ur Epithelial Cells Urine Bacteria 08/19/19 08/19/19 08/19/19 15:28 15:44 16:54 WBC RBC Hgb Hct MCV MCH MCHC RDW Plt Count MPV Absolute Neuts (auto) Absolute Lymphs (auto) Absolute Monos (auto) Absolute Eos (auto) Absolute Basos (auto) Neutrophils % Lymphocytes % Monocytes % Eosinophils % Basophils % Sodium Potassium Chloride Carbon Dioxide Anion Gap BUN Creatinine BUN/Creatinine Ratio POC Glucose 239 H D Random Glucose Cancelled Serum Osmolality Calcium Total Bilirubin AST ALT Alkaline Phosphatase Serum Total Protein Albumin Globulin Albumin/Globulin Ratio Urine Color Yellow Urine Appearance Clear Urine pH 5.0 Ur Specific [place] 1.015 Urine Protein Negative Urine Glucose (UA) 500 H Urine Ketones Negative Urine Blood Negative Urine Nitrite Negative Urine Bilirubin Negative Urine Urobilinogen 0.2 Ur Leukocyte Esterase Negative Urine RBC 0-1 Urine WBC 0-1 Ur Epithelial Cells 0 Urine Bacteria 0 - EKG/XRAY/CT CT Ordered: No Departure - Departure Clinical Impression: Hyperglycemia, Mild dehydration, Hypokalemia Disposition: Discharge to Home or Self Care Condition: Fair Departure Forms: ED Discharge - Pt. Copy, Patient Portal Self Enrollment Diet: diabetic diet Activity: increase activity as tolerated Referrals: DENNY CRUZ [Primary Care Provider] - 1-2 Weeks Home Medications: Ambulatory Orders Metformin HCl [Metformin Hydrochloride] 850 mg PO BID 03/22/16 Aspirin [Aspirin Adult Low Dose] 81 mg PO DAILY 06/26/18 Atorvastatin Calcium [Lipitor] 40 mg PO QPM 06/26/18 Cholecalciferol [Vitamin D-3] 5,000 unit PO DAILY 06/26/18 Clopidogrel Bisulfate [Plavix] 75 mg PO QD 06/26/18 Isosorbide Mononitrate [Isosorbide Mononitrate ER] 30 mg PO DAILY 06/26/18 Magnesium Oxide 400 mg PO DAILY #30 cap 06/26/18 Metoprolol Succinate [Toprol Xl] 25 mg PO DAILY 06/26/18 Multiple Vitamins W/ Minerals [Macular Health Formula] 1 cap PO QPM 06/26/18 Pantoprazole Tablet [Protonix] 40 mg PO DAILY 06/26/18 Tamsulosin HCl [Flomax] 0.4 mg PO DAILY 06/26/18 Dulaglutide [Trulicity] 1.5 mg SC 08/19/19 Additional Instructions: The patient is a 74-year-old male presented emergency room secondary to worsening hyperglycemia. He is essentially asymptomatic. This is likely related to an increase in his diuresis. For now I am recommending that they use the diuretic every other day. He does have some very mild hypokalemia from it and received a dose of potassium today. He also received IV insulin for the hyperglycemia. Blood sugars are back down in the 200s. I am going to recommend that he increase his glimepiride to 2 mg twice daily for the next week and follow-up with his primary care doctor early next week for repeat evaluation. ER warnings are given for any significant worsening.
[2019-08-19 17:24] VITALS: BP 128/100; TEMP 96.7
== END 2019-08-19 17:18 | disposition home or self-care (01) ==
LOC: ER 14:54
DX: E11.65 Type 2 diabetes mellitus with hyperglycemia (principal); E87.6 Hypokalemia; E86.0 Dehydration; I10 Essential (primary) hypertension; Z79.82 Long term (current) use of aspirin; Z79.899 Other long term (current) drug therapy
CPT/HCPCS: 36415; 36416; 80053; 81001; 82948; 85025; J7030

== ENCOUNTER → 2019-09-06 | Outpatient (CLI) | payer OTHER | LOC: YCHH 08:37 | PROVIDERS: ATTEND Family Medicine | DX: R79.89 Other specified abnormal findings of blood chemistry (principal) ==

== ENCOUNTER 2019-10-30 20:13 | Emergency (ER) | payer OTHER ==
[2019-10-30] MEDS ORDERED: SODIUM CHLORIDE 0.9% (FLUSH) 10 ML SYG IV PRN (20:30)
--- NOTE | 2019-10-30 20:31 | ED.PDOC ---
History of Present Illness - General Chief Complaint: General Time Seen by Provider: 10/30/19 20:27 Source: patient - History of Present Illness Initial Comments: 74 yo male with PMH of HTN, DM2, dementia who is bib daughter from assisted living facility with cc of yellow eyes and skin. Daughter reports she first noticed yesterday that his eyes seem yellow and possibly the skin of his face. This evening when she visited him she reports it had markedly worsened further even since yesterday and now involves his entire body. Reports also he has been seeming slightly more confused than usual and also bruising much more easily than usual with numerous bruises mostly down both arms. In the ED patient only complains of intermittent dull pain up and down his entire back which come and go intermittently, currently 5/10 severity, no medications taken for relief. Also reports worsening swelling in both of his legs for the past couple of weeks. Does have chronic swelling in his legs and takes Lasix at home as needed. Daughter reports the jaundice is a new issue. No reported history of liver or gallbladder disease, no history of cancer or hepatitis. Does not take any anticoagulation. PCP is Dr. Vicente in [place]. Daughter reports patient does have dementia which has been worsening over the past couple of years. Allergies/Adverse Reactions: Allergies NO KNOWN ALLERGY Allergy (Verified 10/30/19 20:40) Home Medications: Ambulatory Orders Metformin HCl [Metformin Hydrochloride] 850 mg PO BID 03/22/16 Aspirin [Aspirin Adult Low Dose] 81 mg PO DAILY 06/26/18 Atorvastatin Calcium [Lipitor] 40 mg PO QPM 06/26/18 Cholecalciferol [Vitamin D-3] 5,000 unit PO DAILY 06/26/18 Clopidogrel Bisulfate [Plavix] 75 mg PO QD 06/26/18 Isosorbide Mononitrate [Isosorbide Mononitrate ER] 30 mg PO DAILY 06/26/18 Magnesium Oxide 400 mg PO DAILY #30 cap 06/26/18 Metoprolol Succinate [Toprol Xl] 25 mg PO DAILY 06/26/18 Multiple Vitamins W/ Minerals [Macular Health Formula] 1 cap PO QPM 06/26/18 Pantoprazole Tablet [Protonix] 40 mg PO DAILY 06/26/18 Tamsulosin HCl [Flomax] 0.4 mg PO DAILY 06/26/18 Dulaglutide [Trulicity] 1.5 mg SC 08/19/19 Donepezil HCl [Aricept] 5 mg PO 10/30/19 Glimepiride 2 mg PO 10/30/19 Review of Systems - Review of Systems Review of Systems: 10/30/19 20:50 as per HPI All other Systems: Reviewed and Negative Past Medical History (General) - Patient Medical History Hx Seizures: No Hx Stroke: No Hx Dementia: No Hx Asthma: No Hx of COPD: No Hx Cardiac Disorders: Yes Hx Congestive Heart Failure: No Hx Pacemaker: No Hx Hypertension: Yes Hx Thyroid Disease: No Hx Diabetes: Yes Hx Gastroesophageal Reflux: Yes Hx Renal Disease: No Hx Cancer: No Hx of HIV: No Hx Hepatitis C: No Hx MRSA: No - Vaccination History Hx Tetanus, Diphtheria Vaccination: No Hx Influenza Vaccination: Yes Hx Pneumococcal Vaccination: No - Social History Hx Tobacco Use: Yes - Vapes currently Hx Chewing Tobacco Use: No Hx Alcohol Use: No Hx Substance Use: No Hx Substance Use Treatment: No Hx Depression: No Hx Physical Abuse: No Hx Emotional Abuse: No Hx Suspected Abuse: No Family Medical History - Family History Father Family History: Unknown Living Status: Unknown Mother Living Status: Cause of : old age Hx Family Asthma: No Hx Family Congestive Heart Failure: No Hx Family Hypertension: No Hx Family Stroke: No Hx Cardiac Disease: No Hx Family Diabetes: Yes Hx Family Cancer: No Physical Exam - Physical Exam General Appearance: Alert, Comfortable, No apparent distress Eye Exam: bilateral scleral icterus Ears, Nose, Throat: normal ENT inspection, normal pharynx Neck: non-tender, full range of motion, supple, normal inspection Respiratory: chest non-tender, no respiratory distress, no accessory muscle use, rales - BL faint crackles to mid-lung chandra, worse at BL bases Cardiovascular/Chest: normal peripheral pulses, regular rate, rhythm, no gallop, no JVD, no murmur Peripheral Pulses: radial,right: 2+, radial,left: 2+ Gastrointestinal/Abdominal: normal bowel sounds, soft, no pulsatile mass, distended, tenderness - Moderate with some guarding to the right upper quadrant without rebound, hernia - Approximately 4 x 4 centimeter periumbilical hernia which is soft and nontender, not easily reducible Back Exam: no CVA tenderness, other - Well-healed approximately 10 cm vertical midline prior surgical scar to the lumbar spine. No tenderness to palpation of the midline or step-offs noted. 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 Off by 2 days on the date Skin Exam: jaundice - Impressive jaundice involving the head, conjunctiva, neck, torso, abdomen, legs, arms Lymphatic: no adenopathy Progress - Progress Progress: 10/30/19 20:53 Acute painless jaundice -Large concern for neoplastic process in the abdomen, pancreatic cancer, gallbladder neoplasm, liver neoplasm, gallstones, cholecystitis, acute cholangitis, pancreatitis, sepsis, hemolytic process, hepatitis, end-stage liver disease, cirrhosis, other -Patient stable, no acute distress -Obtain blood work, cardiac work-up, sepsis work-up, UA -We will obtain CT imaging once labs back 10/30/19 21:20 -Numerous critical labs reported. Total bilirubin is 15.2, direct 9.7, indirect 5.5, alkaline phosphatase 643, AST 212, ALT 133, albumin 2.6, INR 7.7, PTT 33, ammonia 36, LDH 395, serum WBC 12,500 with 70% segs and 5% bands, lactic acid level 4.4, hemoglobin 14.1, hematocrit 42.5, platelet count 179,000, troponin 0 0.06, BNP 139, d-dimer 3100. -CXR with BL diffuse interstitial infiltrates per my read - most likely c/w pulmonary edema, consider also PNA. -Findings are concerning for acute severe disease of the biliary tree - malignancy, obstructive stone, acute cholangitis/cholecystitis. Consider also sepsis, acute hepatitis/liver failure, malignancy, DIC, other. -Will obtain CTA chest and CT A/P with contrast for further evaluation. Draw blood cultures. Hold IV fluids as pt appears hypervolemic on exam and vitals stable. Suspect lactic acidosis likely 2/2 severe liver disease. Will begin broad spectrum IV Abx with Vanc and Zosyn for now for empiric coverage. Anticipate need for surgical consult and likely transfer to higher [facility] once CT imaging back. 10/30/19 22:42 -CT imaging back. 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 Consider primary pancreatic cancer given 7 cm pancreatic tail mass. Also concern for large intraluminal thrombi in the abd aorta and iliacs. Discussed all findings with pt and family. Will need to transfer to higher LOC for urgent hem/onc consultation, vascular surgery consultation which are unavailable here. Will also need general surgery consultation and possible interventional radiology consultation. -Called and spoke with [facility] [place], [place] [facility], [facility] - no beds available. Spoke with [facility] - no vascular surgery available. 10/31/19 00:45 -Spoke with Dr. Culver, hospitalist at [facility], who accepts pt for transfer. Stable to go via ground EMS. COVID-19 testing negative. Jakob Schafer MD Billing #[id number] 10/30/19 20:30 IV Care:Saline Lock per Protoc QSHIFT Sodium Chloride 0.9% (Flush) [Saline Flush Syringe] 10 ml IV PRN PRN EKG STAT URINALYSIS Stat 10/30/19 21:19 Abdomen/Pelvis w/Contrast [CT] Stat BLOOD CULTURE Stat 10/30/19 21:20 Hold Metformin x 48Hrs [id number] 10/31/19 20:30 EKG STAT Laboratory Results - last 24 hr 10/30/19 10/30/19 10/30/19 20:35 20:35 20:35 WBC 12.5 H RBC 4.69 L Hgb 14.1 Hct 42.5 MCV 90.6 MCH 30.0 MCHC 33.1 RDW 17.8 H Plt Count 179 MPV 10.2 Absolute Neuts (auto) Not Reportable Absolute Lymphs (auto) Not Reportable Absolute Monos (auto) Not Reportable Absolute Eos (auto) Not Reportable Neutrophils % Not Reportable Neutrophils % (Manual) 70.0 Lymphocytes % Not Reportable Lymphocytes % (Manual) 19.0 Monocytes % Not Reportable Monocytes % (Manual) 4.0 Eosinophils % Not Reportable Basophils % Not Reportable Band Neutrophils 5.0 H Eosinophils 2.0 Platelet Estimate Normal Normal RBC Morphology 2+target cells D-Dimer, Quantitative Sodium 135 Potassium 3.6 Chloride 100 L Carbon Dioxide 19 L Anion Gap 19.6 H BUN 24 H Creatinine 0.98 BUN/Creatinine Ratio 24.5 H POC Glucose Random Glucose 152 H Serum Osmolality 277.1 Lactic Acid Calcium 8.5 Total Bilirubin 15.2 H* Direct Bilirubin 9.7 H Indirect Bilirubin 5.5 H AST 212 H ALT 133 H Alkaline Phosphatase 643 H Ammonia 36 H LD Total Troponin I 0.06 H B-Natriuretic Peptide Serum Total Protein 6.4 Albumin 2.6 L Amylase 23 L Lipase 25 10/30/19 10/30/19 10/30/19 20:35 20:35 20:35 WBC RBC Hgb Hct MCV MCH MCHC RDW Plt Count MPV Absolute Neuts (auto) Absolute Lymphs (auto) Absolute Monos (auto) Absolute Eos (auto) Neutrophils % Neutrophils % (Manual) Lymphocytes % Lymphocytes % (Manual) Monocytes % Monocytes % (Manual) Eosinophils % Basophils % Band Neutrophils Eosinophils Platelet Estimate Normal RBC Morphology D-Dimer, Quantitative 3100.0 H* Sodium Potassium Chloride Carbon Dioxide Anion Gap BUN Creatinine BUN/Creatinine Ratio POC Glucose Random Glucose Serum Osmolality Lactic Acid 4.4 H* Calcium Total Bilirubin Direct Bilirubin Indirect Bilirubin AST ALT Alkaline Phosphatase Ammonia LD Total Troponin I B-Natriuretic Peptide 139.0 H Serum Total Protein Albumin Amylase Lipase 10/30/19 10/30/19 20:35 20:43 WBC RBC Hgb Hct MCV MCH MCHC RDW Plt Count MPV Absolute Neuts (auto) Absolute Lymphs (auto) Absolute Monos (auto) Absolute Eos (auto) Neutrophils % Neutrophils % (Manual) Lymphocytes % Lymphocytes % (Manual) Monocytes % Monocytes % (Manual) Eosinophils % Basophils % Band Neutrophils Eosinophils Platelet Estimate Normal RBC Morphology D-Dimer, Quantitative Sodium Potassium Chloride Carbon Dioxide Anion Gap BUN Creatinine BUN/Creatinine Ratio POC Glucose 140 H Random Glucose Serum Osmolality Lactic Acid Calcium Total Bilirubin Direct Bilirubin Indirect Bilirubin AST ALT Alkaline Phosphatase Ammonia LD Total 395 H Troponin I B-Natriuretic Peptide Serum Total Protein Albumin Amylase Lipase - EKG/XRAY/CT EKG: Sinus - Normal sinus rhythm with frequent PVCs noted, no ST elevations, Q waves noted in the anteroseptal and inferior leads likely indicative of prior MA, RVH criteria noted, right axis deviation noted, compared to 06/26/2018 EKG PVCs appear new but otherwise unchanged Departure - Departure Clinical Impression: Pancreatic mass, Hyperbilirubinemia, Arterial thrombosis Metastatic cancer Qualifiers: Area of secondary neoplastic involvement: unspecified site Qualified Code(s): C79.9 - Secondary malignant neoplasm of unspecified site Sepsis Qualifiers: Sepsis type: sepsis due to unspecified organism Sepsis acute organ dysfunction status: with acute organ dysfunction Severe sepsis acute organ dysfunction type: acute liver failure Hepatic coma status: without hepatic coma Severe sepsis shock status: without septic shock Qualified Code(s): A41.9 - Sepsis, unspecified organism Time of Disposition: 22:42 Disposition: Transfer to Hospital Condition: Poor Departure Forms: ED Discharge - Pt. Copy, Patient Portal Self Enrollment Referrals: DENNY VICENTE [Primary Care Provider] - 1-2 Weeks Home Medications: Ambulatory Orders Metformin HCl [Metformin Hydrochloride] 850 mg PO BID 03/22/16 Aspirin [Aspirin Adult Low Dose] 81 mg PO DAILY 06/26/18 Atorvastatin Calcium [Lipitor] 40 mg PO QPM 06/26/18 Cholecalciferol [Vitamin D-3] 5,000 unit PO DAILY 06/26/18 Clopidogrel Bisulfate [Plavix] 75 mg PO QD 06/26/18 Isosorbide Mononitrate [Isosorbide Mononitrate ER] 30 mg PO DAILY 06/26/18 Magnesium Oxide 400 mg PO DAILY #30 cap 06/26/18 Metoprolol Succinate [Toprol Xl] 25 mg PO DAILY 06/26/18 Multiple Vitamins W/ Minerals [Macular Health Formula] 1 cap PO QPM 06/26/18 Pantoprazole Tablet [Protonix] 40 mg PO DAILY 06/26/18 Tamsulosin HCl [Flomax] 0.4 mg PO DAILY 06/26/18 Dulaglutide [Trulicity] 1.5 mg SC 08/19/19 Donepezil HCl [Aricept] 5 mg PO 10/30/19 Glimepiride 2 mg PO 10/30/19 Transfer to Outside Facility - Transfer Information Decision to Transfer Date: 10/31/19 Decision to Transfer Time: 00:47 Reason for Transfer: required specialist not available Accepting Provider:: Dr. Culver Accepting Facility: [facility]
--- NOTE | 2019-10-30 21:17 | RAD ---
EXAM DESCRIPTION: Chest,1 View CLINICAL HISTORY: 74 years Male, acute jaundice, altered mental status, edema COMPARISON: 01/07/2017 TECHNIQUE: Single AP chest radiograph. FINDINGS: Cardiomegaly, status post midline sternotomy. Bilateral pulmonary opacities with apical to basal gradient. No pneumothorax or pleural effusion. IMPRESSION: 1. Cardiomegaly with bilateral pulmonary opacities, most consistent with edema. Superimposed infection not excluded. Electronically signed by: Suresh Lorenzo MD 10/30/2019 9:15 PM CDT
--- NOTE | 2019-10-30 22:00 | CT ---
CT CHEST ANGIOGRAPHY WITH IV CONTRAST HISTORY: Shortness of breath. COMPARISON: None. TECHNIQUE: CT angiogram of the chest with IV contrast. 3-D MIP images were obtained in coronal and sagittal reconstructions. This exam was performed according to our departmental dose-optimization program, which includes automated exposure control, adjustment of the mA and/or kV according to patient size and/or use of iterative reconstruction technique. FINDINGS: The study is limited due to diffuse motion and breathing artifact throughout the lungs. No filling defects are seen in the pulmonary trunk or the left and right main pulmonary artery. There is limited evaluation of the segmental branches due to motion artifact. The thyroid gland is normal. No mediastinal or hilar adenopathy. The heart size is mildly enlarged without pericardial effusion. The thoracic aorta is normal caliber. No consolidation, pleural effusion, or pneumothorax is identified. There are numerous pulmonary nodules scattered throughout both lungs. IMPRESSION: 1. No central pulmonary embolism. 2. Numerous bilateral pulmonary lung nodules which may represent metastatic disease. Correlate with clinical history. 3. Limited study due to diffuse motion artifact. Electronically signed by: Gavin Kang MD 10/30/2019 9:58 PM CDT
[2019-10-30] MEDS ORDERED: PIPERACILLIN/TAZOBACTAM 4.5 GM in SODIUM CHLORIDE 0.9% 100ML 100 ML IVPB ONE (22:01)
[2019-10-30] MEDS ORDERED: VANCOMYCIN HCL INJ 1,000 MG, VANCOMYCIN HCL INJ 500 MG in SODIUM CHLORIDE 0.9% 250ML 25... IVPB ONE (22:01)
--- NOTE | 2019-10-30 22:04 | CT ---
EXAM DESCRIPTION: Abdomen/Pelvis w/Contrast CLINICAL HISTORY: 74 years Male acute jaundice, RUQ tenderness, bilirubin 15.2 COMPARISON: 06/26/2018 TECHNIQUE: Multiple contiguous axial CT slices were taken from the diaphragms to the pubic symphysis after intravenous administration of Iodinated contrast. This exam was performed according to our departmental dose-optimization program, which includes automated exposure control, adjustment of the mA and/or kV according to patient size and/or use of iterative reconstruction technique. FINDINGS: There are numerous cysts scattered bibasilar lung nodules. Small right pleural effusion. Hiatal hernia. There are numerous hepatic metastases, the 3 largest of which measure 4.1 cm, 4.1 cm and 2.6 cm respectively. There are multiple enlarged peripancreatic and gracie hepatic lymph nodes, the largest of which measures 4.1 cm. There is a heterogeneously hypoenhancing pancreatic tail mass which measures 5.0 x 4.8 x 7.4 cm and appears to extend into the splenic hilum. There are several small adjacent splenic hypodensities, which are nonspecific but are concerning for small satellite lesions. The splenic vein and portal vein appear patent The adrenals are normal. No biliary ductal dilation. The kidneys and ureters are normal. The bladder is normal. There is prostatomegaly. Visualized bowel is normal in caliber. The appendix is not visualized. There are scattered colonic diverticuli without evidence of acute diverticulitis. Please note that the lateral margin of the descending colon is partially excluded from the [id number] along with the adjacent subcutaneous soft tissues. There is a 3.1 cm infrarenal abdominal aortic aneurysm, as well as bilateral iliac artery aneurysms measuring 3 cm in the right and 1.9 cm and the left. There is a large amount of intraluminal thrombus throughout, most notable in the right common iliac aneurysm. No ascites, pneumatosis or pneumoperitoneum. Fat-containing periumbilical hernia. No destructive osseous lesions. Postoperative changes of lumbar fusion. Scoliosis and advanced spondylosis. Chronic appearing right rib fracture deformities. IMPRESSION: 1. 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 Electronically signed by: Suresh Lorenzo MD 10/30/2019 10:02 PM CDT
[2019-10-31 00:01] VITALS: TEMP 97.9
[2019-10-31 00:33] VITALS: BP 108/71; O2SAT 95
== END 2019-10-31 01:03 | disposition short-term general hospital (02) ==
LOC: ER 20:13
DX: A41.9 Sepsis, unspecified organism (principal); R65.20 Severe sepsis without septic shock; K72.00 Acute and subacute hepatic failure without coma; K86.9 Disease of pancreas, unspecified; E80.6 Other disorders of bilirubin metabolism; C79.9 Secondary malignant neoplasm of unspecified site; I74.5 Embolism and thrombosis of iliac artery; I74.09 Other arterial embolism and thrombosis of abdominal aorta; I49.3 Ventricular premature depolarization; I51.9 Heart disease, unspecified; I10 Essential (primary) hypertension; E11.9 Type 2 diabetes mellitus without complications; F03.90 Unspecified dementia, unspecified severity, without behavioral disturbance, psychotic disturbance, mood disturbance, and anxiety; K21.9 Gastro-esophageal reflux disease without esophagitis; F17.290 Nicotine dependence, other tobacco product, uncomplicated; Z11.59 Encounter for screening for other viral diseases; Z79.82 Long term (current) use of aspirin; Z79.84 Long term (current) use of oral hypoglycemic drugs; Z79.899 Other long term (current) drug therapy
CPT/HCPCS: 36415; 71045; 71275; 74177; 80048; 80076; 81001; 82140; 82150; 82948; 83605; 83615; 83690; 83880; 84484; 85025; 85379; 85610; 85730; 87040; 87635; 93005; A4216; J2543; J3370; J7050